=== PATIENT | male | born 2000 | race Hispanic/Latino ===

== ENCOUNTER 2021-04-05 22:22 | Inpatient (IN) | payer OTHER ==
[~2021-04-05] VITALS: Ht 177.8 cm; Wt 84.8 kg
[2021-04-05] MEDS ORDERED: HOME MED LIST COMPLETE! XX SCH (23:10)
[2021-04-05 23:30] LABS: AMPHETAMINES LEVEL URINE NEGATIVE (NEGATIVE); BARBITURATES URINE NEGATIVE (NEGATIVE); BENZODIAZEPINES URINE NEGATIVE (NEGATIVE); CANNABINOIDS URINE NEGATIVE (NEGATIVE); COCAINE METABOLITE URINE NEGATIVE (NEGATIVE); METHADONE URINE NEGATIVE (NEGATIVE); OPIATES URINE NEGATIVE (NEGATIVE); PHENCYCLIDINE URINE NEGATIVE (NEGATIVE)
[2021-04-06 00:28] LABS: HEMATOCRIT 46.7 % (42.0-52.0); HEMOGLOBIN 15.2 g/dl (13.5-17.5); MEAN CORPUSCULAR HEMOGLOBIN 28.2 pg (27.0-33.0); MEAN CORPUSCULAR HGB CONC 32.5 g/dl (32.0-36.5); MEAN CORPUSCULAR VOLUME 86.6 fl (80.0-96.0); PLATELET COUNT, AUTOMATED 253 10^3/uL (150-450); RED BLOOD COUNT 5.39 10^6/uL (4.30-6.10); WHITE BLOOD COUNT 13.1 10^3/uL (4.0-10.0)
[2021-04-06 00:47] LABS: ACETAMINOPHEN LEVEL < 2.0 UG/ML (10.0-30.0); ALBUMIN 3.9 GM/DL (3.2-5.2); ALT/SGPT 31 U/L (12-78); BILIRUBIN,DIRECT 0.2 MG/DL (0.0-0.2); BILIRUBIN,TOTAL 0.5 MG/DL (0.2-1.0); BLOOD UREA NITROGEN 13 MG/DL (7-18); CALCIUM LEVEL 8.6 MG/DL (8.5-10.1); CARBON DIOXIDE LEVEL 30 MEQ/L (21-32); CHLORIDE LEVEL 105 MEQ/L (98-107); CREATININE FOR GFR 0.79 MG/DL (0.70-1.30); ETHYL ALCOHOL (ETHANOL) < 0.003 % (0.000-0.010); GLOMERULAR FILTRATION RATE > 60.0 (>60); GLUCOSE, FASTING 102 MG/DL (70-100); POTASSIUM SERUM 3.8 MEQ/L (3.5-5.1); SALICYLATE LEVEL < 1.7 MG/DL (5.0-30.0); SODIUM LEVEL 140 MEQ/L (136-145); TOTAL PROTEIN 7.3 GM/DL (6.4-8.2)
[2021-04-06 09:18] LABS: RSV AMPLIFICATION NEGATIVE (NEGATIVE)
[2021-04-06] MEDS ORDERED: MOM 30ML SUSPENSION UDC PO PRN (10:40)
[2021-04-06] MEDS ORDERED: traZODone 50 MG TAB PO PRN (10:40)
[2021-04-06] MEDS ORDERED: ACETAMINOPHEN TAB 650MG DOSE (2X325MG) PO PRN (10:40)
[2021-04-06] MEDS ORDERED: MAALOX 30 ML SUSP *UDC PO PRN (10:40)
[2021-04-06 11:53] VITALS: BP 132/74
[2021-04-06 16:24] VITALS: BP 140/68
[2021-04-07 06:45] VITALS: BP 135/63
--- NOTE | 2021-04-07 09:03 | HPEPDOC ---
[facility] Medical History & Physical Date of Admission Apr 05, 2021 Date of Service: Apr 07, 2021 History and Physical CHIEF COMPLAINT: suicidal ideation HISTORY OF PRESENT ILLNESS: 20-year-old male presents to the emergency department for panic attacks and suicidal ideation. 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 He also notes his friend committed suicide and his grandmother is now in the hospital on dialysis. He feels that due the stress in his life he has been having suicidal ideation. He notes poor concentration, decreased energy levels, poor sleep and poor appetite. He denies chest pain, shortness of breath, abdominal pain, nausea, vomiting, diarrhea, headaches, changes in vision PAST MEDICAL HISTORY: Denies SOCIAL HISTORY: States he has 2-5 drinks on the weekends. FAMILY HISTORY: Father: Mother: ALLERGIES: Please see below. REVIEW OF SYSTEMS: Negative except as per HPI. HOME MEDICATIONS: Please see below. PHYSICAL EXAMINATION: VITAL SIGNS: See below General: NAD, sitting comfortably in chair HEENT: NC/AT, EOMI Lungs: CTA B/L Heart: +S1S2, RRR Abd: soft, NT, +BS Ext: no edema Neuro: no gross focal deficits Psych: AAOx3 LABORATORY DATA: See below. MICROBIOLOGY: Please see below. A/P: 20 year old male with no past medical history admitted to inpatient mental health unit for suicidal ideation. #SI - As per primary team Thank you for this consultation. Please reconsult as needed. Vital Signs Vital Signs Date Time Temp Pulse Resp B/P (MAP) Pulse Ox O2 Delivery O2 Flow Rate FiO2 04/07/21 06:45 97.8 60 14 135/63 (87) 98 Room Air Home Medications No Active Prescriptions or Reported Meds Allergies Coded Allergies: No Known Allergies (Unverified , 04/05/21) A-FIB/CHADSVASC A-FIB History Current/History of A-Fib/PAF?: No JAZMIN GALARZA MD Apr 07, 2021 09:03
--- NOTE | 2021-04-07 10:32 | MHHPEPDOC ---
General Date Of Admission: Apr 06, 2021 Legal Status: 9.39 Chief Complaint "[I was having some difficult time and had a mental breakdown but I am feeling better now.]. History of Present Illness HISTORY OF THE PRESENT ILLNESS: Patient is a 20 -year-old , male, who [has no previous psychiatric history who was sent to the emergency room from [facility] at [place]. Patient stated that he found out that his uncle from "with impaction in October of this year and then recently one of his close friend from suicide in January of this year. Patient stated that he was feeling the stress building up in his mind and recently had a trouble with feeling depressed having anxiety panic symptoms and was crying and did not feel like living anymore. He apparently went to the behavioral health unit saw a counselor but was given appointment for follow-up and reported that he was having vague suicidal thoughts and sent to emergency room and admitted. Patient stated that he had a emotional breakdown for the first time in his life but is feeling better now and does not feel suicidal anymore since he arrived at the emergency room evening. He denies any hallucination paranoia denies any feelings of hopeless helpless nature and denies any ongoing depression and denies any suicidal thoughts plan or intent. 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 Psychiatric Review of Systems Depression (2 or more weeks): depressed mood, difficulty concentrating, suicidal thoughts, other (Or in the past 2 weeks but not feeling depressed or anxious anymore) Lida (4 or more days of): denies Psychosis: denies PTSD: denies Anxiety: situational anxiety Past Psychiatric History Previous Psychiatric Diagnosis: . No diagnosis Previous Psychiatric Admissions: . No treatment history Suicide Attempts: . No history of suicidal attempt Psychiatric Follow-up: . Recent visits to [facility] Psychiatric medications: . None Past Medical History Medical Problems No medical issues Head Injury: No Seizures: No Hospitalizations: No Surgeries: No Family Medical/Psychiatric HX Medical Problems Noncontributory Psychiatric Disorders: No Addiction: No Suicide Attemps/Completions: No Addiction History denies Social History Childhood: . Born in [place] his parents were never he has very little contact with his father Abuse/Trauma:[No history of abuse]. Current Living Sit[place] Education: [High school]. 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 Social Support: . Family and friends Legal: no legal history. Marital: . Single Mental Status Examination General Appearance: appears stated age Build: average Demeanor: average Eye Contact: average Activity: average Behavior: cooperative Speech: clear, spontaneous, normal volume Mood: anxious, other (Moderately anxious) Mood Was distressed anxious and depressed before admission but reports feeling better. He denies any major ongoing depressive symptoms and denies any suicidal thoughts. Thought Process: logical/linear Thought Content (Delusions): none reported, denies SI, HI, AVH Thought Content (Other): none reported Thought Content (Aggressive): none reported Perception (Hallucinations): none reported Perception (Other): none reported Cognition (Impairment of): none reported Cognition(Intelligence Est.): average Oriented: Awake, Alert, Oriented times three Insight: fair Judgment: Fair Psychosis: Denies Diagnoses Adjustment disorder with mixed emotion A-FIB/CHADSVASC A-FIB History Current/History of A-Fib/PAF?: No Current PO Anticoag Therapy: No Age/Risk Factor Scoring CHADSVASC: CHADSVASC Response (Comments) Value Age Risk Factor Age < 65 years old 0 Gender Risk Factor Male 0 Hx of CHF No 0 Hx of HTN No 0 Hx of Stroke/TIA/or VTE No 0 Hx of Diabetes No 0 Hx of Vascular Disease No 0 Total 0 Treatment Treatment ordered: NONE Assessment Does not appear clinically depressed and no suicidal thoughts and mental status exam is basically unremarkable we will try to return him to his unit with outpatient follow-up Initial Treatment Plan 1. Patient was admitted on a status. 2. Complete history was obtained. 3. With patients permission, family will be contacted and database will be expanded. 4. Patients medication regimen will be reviewed and changed accordingly. 5. Patient will be provided with protected environment. 6. Patient will be treated with individual, group, and milieu therapies. 7. Patient will receive supportive psych-education. 8. Discharge planning will commence immediately. 9. Outpatient follow-up treatment will be strongly recommended. 10. The initial treatment plan will focus initially on: * Depression. * Risk for suicide. ESTIMATED LENGTH OF STAY: 2-3 DAYS. TIME SPENT COUNSELING AND COORDINATING INITIAL CARE: 40 minutes. Tobacco Cessation Screen If Patient is a Smoker Non-smoker N/A-No Antipsychotics Vital Signs Vital Signs Date Time Temp Pulse Resp B/P (MAP) Pulse Ox O2 Delivery O2 Flow Rate FiO2 04/07/21 06:45 97.8 60 14 135/63 (87) 98 Room Air Medications No Active Prescriptions or Reported Meds Allergies Coded Allergies: No Known Allergies (Unverified , 04/05/21) MARY KAY VALDES M.D. Apr 07, 2021 10:32
[2021-04-07 16:39] VITALS: BP 117/60
[2021-04-08 05:32] VITALS: BP 147/65
--- NOTE | 2021-04-08 09:43 | MHIPNPDOC ---
[facility] Progress Note Progress Note DATE OF SERVICE: 04/08/21 Patient is maintaining good control and reports that he slept well and has no new complaints. He is smiling appropriately does not appear to be seriously depressed and is verbally productive and appropriate. He understands that he had emotional reaction to recent losses but claims that he is over that and is denying any suicidal thoughts and anxious to return to his unit [facility]. HISTORY:. VITAL SIGNS: See below. NEW TEST RESULTS:. CURRENT MEDICATIONS: See below. MENTAL STATUS EXAMINATION: Patient is a 20-year old male, who is pleasant and cooperative. Speech: Is rational. Language skills are good. Thought processes including: Coherent. Thought content: No suicidal thoughts. Abstract reasoning, and computation: Fair. Description of associations: Organized. Description of abnormal or psychotic thoughts: No psychotic symptoms. Judgment: Fair. Insight: Fair]. Orientation: Oriented. Recent and remote memory: Unimpaired. Attention span and concentration: Fair. Language:. Fund of knowledge:. Mood: Mildly anxious but not depressed. Affect: Appropriate. DIAGNOSES: 1. Adjustment disorder with mixed emotion. 2.. 3.. ASSESSMENT: In no acute distress and does not appear to be clinically depressed MANAGEMENT PLAN: Continue with the supportive therapy plan for discharge tomorrow. TIME SPENT: 15 minutes. Vital Signs Vital Signs Date Time Temp Pulse Resp B/P (MAP) Pulse Ox O2 Delivery O2 Flow Rate FiO2 04/08/21 05:32 97.9 71 18 147/65 (92) 100 Room Air Current Medications Current Medications Medications (Trade) Dose Ordered Sig/Isacc Route PRN Reason Start Time Stop Time Status Last Admin Dose Admin Acetaminophen (Tylenol Tab) 650 mg Q6HP PRN PO HEADACHE or MILD DISCOMFORT 04/06/21 10:40 Al Hydrox/Mg Hydrox/Simethicone (Mylanta) 30 ml Q4HP PRN PO HEARTBURN/INDIGESTION 04/06/21 10:40 Home Med (Home Med List Complete!) ASDIRECTED XX 04/05/21 23:10 04/05/21 23:12 DC Magnesium Hydroxide (Milk Of Magnesia) 30 ml DAILYPRN PRN PO CONSTIPATION 04/06/21 10:40 Trazodone HCl (Desyrel) 50 mg QHSP PRN PO INSOMNIA 04/06/21 10:40 Allergies Coded Allergies: No Known Allergies (Unverified , 04/05/21) MARY KAY VALDES M.D. Apr 08, 2021 09:43
[2021-04-08 16:27] VITALS: BP 122/57
[2021-04-09 07:36] VITALS: BP 136/61
--- NOTE | 2021-04-09 11:15 | MHDSPDOC ---
[facility] Discharge Summary Discharge Summary DATE OF ADMISSION: Apr 06, 2021 at 10:37 DATE OF DISCHARGE: April 09, 2021 DISCHARGE DIAGNOSES: 1.. Adjustment disorder with mixed emotion 2.. 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 at [place] after he reported having thoughts of suicide. Patient stated that he was under stress because of recent of his uncle and a close friend and had what he called mental breakdown. He stated that he was feeling quite upset depressed and had the passing thoughts of suicide but denies any intent plan or thoughts of suicide and had no history of suicidal attempt. He denies any ongoing depression denies any history of depression denies any substance abuse issues. CONSULTANTS INVOLVED: TREATMENT AND PROGRESS ON THE UNIT : The patient was seen for supportive therapy and lethality evaluation. He denies any ongoing serious depression and rapidly regained to his strength and stated that he does not feel so upset or depressed anymore and does not believe he needs any antidepressant treatment. He is maintaining good control and is pleasant and animated and is not showing any clinical signs or symptoms of depression and does not appear to be suicidal.. HOSPITAL COURSE: Uneventful and he maintained good control and continues to deny any suicidal thoughts DISCHARGE ASSESSMENT: Stable not suicidal and does not appear to be serious. Clinically depressed MENTAL STATUS EXAMINATION ON DISCHARGE: Patient is a 20-year old male, who is in no acute distress. Speech is rational. Language skills are fair. Thought processes including: Coherent. Thought content: No suicidal thoughts. Abstract reasoning, and computation: Good. Description of associations: Well organized. Description of abnormal or psychotic thoughts: No psychotic symptoms. Judgment: Fair. Insight: Fair. Orientation to well oriented. Recent and remote memory: No impairment. Attention span and concentration: Good. Language:. Fund of knowledge:. Mood: Mildly anxious. Affect: Appropriate with good range. MEDICATIONS ON DISCHARGE: -For. No psychotropic medications -For. -For. PLAN/FOLLOWUP ARRANGEMENTS: To follow-up with the behavioral health unit. The amount of time spent in the coordination of care for this patient was approximately 30 minutes. ETOH/Disorder Med Rx ETOH/DRUG DISORDER RX: N/A Vital Signs/I&Os Vital Signs Date Time Temp Pulse Resp B/P (MAP) Pulse Ox O2 Delivery O2 Flow Rate FiO2 04/09/21 07:36 97.6 65 16 136/61 (86) 100 Room Air Medications No Active Prescriptions or Reported Meds Allergies Coded Allergies: No Known Allergies (Unverified , 04/05/21) MARY KAY VALDES M.D. Apr 09, 2021 11:15
== END 2021-04-09 11:11 | disposition home or self-care (01) | DRG 882 ==
LOC: M ED 22:22 → M ED INP 04-06 10:37 → M PSY 04-06 11:50
PROVIDERS: ADMIT Psychiatry & Neurology Psychiatry; ATTEND Psychiatry & Neurology Psychiatry
DX: F43.23 Adjustment disorder with mixed anxiety and depressed mood (principal)

== ENCOUNTER 2021-08-06 23:54 | Emergency (ER) | payer OTHER ==
[~2021-08-06] VITALS: Ht 177.8 cm; Wt 86.4 kg
--- OUTSIDE RECORDS SUMMARY | 2021-08-07 | CCD ---
Author Author [facility] Address Unknown Phone Unavailable Support Name Relationship Address Phone [facility] Next Of Kin [address] [place] [address] Unavailable Re-disclosure Warning The records that you are about to access may contain information from federally-assisted alcohol or drug abuse programs. If such information is present, then the following federally mandated warning applies: This information has been disclosed to you from records protected by federal confidentiality rules (42 CFR part 2). The federal rules prohibit you from making any further disclosure of this information unless further disclosure is expressly permitted by the written consent of the person to whom it pertains or as otherwise permitted by 42 CFR part 2. A general authorization for the release of medical or other information is NOT sufficient for this purpose. The Federal rules restrict any use of the information to criminally investigate or prosecute any alcohol or drug abuse patient.The records that you are about to access may contain highly sensitive health information, the redisclosure of which is protected by Article 27-F of the [facility] Public Health law. If you continue you may have access to information: Regarding HIV / AIDS; Provided by facilities licensed or operated by the [facility] Office of Mental Health; or Provided by the [facility] Office for People With Developmental Disabilities. If such information is present, then the following [facility] mandated warning applies: This information has been disclosed to you from confidential records which are protected by state law. State law prohibits you from making any further disclosure of this information without the specific written consent of the person to whom it pertains, or as otherwise permitted by law. Any unauthorized further disclosure in violation of state law may result in a fine or nursing home sentence or both. A general authorization for the release of medical or other information is NOT sufficient authorization for further disc losure. Medications No Information Insurance Providers Payer name Policy type / Coverage type Policy ID Covered green party ID Covered green party's relationship to dawkins Policy Dawkins Plan [facility] ACTIVE DUTY [id number] Problems, Conditions, and Diagnoses No Information Surgeries/Procedures No Information Results ID Date Data Source [id number] 05/09/2021 08:32:00 AM EDT [facility] Name Value Range Interpretation Code Description Data Mary rce(s) Supporting Document(s) SARS coronavirus 2 RNA Not Detected [facility] [place] This lab was ordered by [facility] and reported by [facility]. ID Date Data Source [id number] 04/06/2021 08:20:00 AM EDT [facility] Name Value Range Interpretation Code Description Data Mary rce(s) Supporting Document(s) SARS coronavirus 2 RNA [Presence] in Res piratory specimen by BOB with probe detection NEGATIVE [facility] This lab was ordered by [facility] a nd reported by [facility]. Procedure Social History No Information
[2021-08-07 01:04] LABS: RSV AMPLIFICATION NEGATIVE (NEGATIVE)
[2021-08-07] MEDS ORDERED: ONDANSETRON 4MG/2ML VIAL IV ONE (06:55)
[2021-08-07] MEDS ORDERED: NS 1,000 ML IV ONE (06:55)
--- OUTSIDE RECORDS SUMMARY | 2021-08-07 07:03 | CCD ---
Author Author [facility] Organization [facility] Address Unknown Phone Unavailable Support Name Relationship Address Phone [facility] Next Of Kin [address] [place] [address] Unavailable Re-disclosure Warning The records that you [...] is protected by Article 27-F of the [facility] Public Health law. If you continue you may have access to information: Regarding HIV / AIDS; Provided by facilities licensed or operated by the [facility] Office of Mental Health; or Provided by the [facility] Office for People With Developmental Disabilities. If such information is present, then the following [facility] mandated warning applies: This information has [...] law may result in a fine or skilled nursing sentence or both. A general authorization for the release of medical or other information is NOT sufficient authorization for further disc losure. Medications No Information Insurance Providers Payer name Policy type / Coverage type Policy ID Covered republican ID Covered republican's relationship to dawkins Policy Dawkins Plan Information [facility] ACTIVE DUTY [id number] Problems, Conditions, and Diagnoses No Information Surgeries/Procedures No Information Results ID Date Data Source [id number] 05/09/2021 08:32:00 AM EDT [facility] Name Value Range Interpretation Code Description Data Mary rce(s) Supporting Document(s) SARS coronavirus 2 RNA Not Detected [facility] [place] This lab was ordered by [facility] and reported by [facility]. ID Date Data Source [id number] 04/06/2021 08:20:00 AM EDT [facility] Name Value Range Interpretation Code Description Data Mary rce(s) Supporting Document(s) SARS coronavirus 2 RNA [Presence] in Res piratory specimen by [facility]OB with probe [facility] This lab was ordered by [facility] a nd reported by [facility]. Procedure Social History No Information
[2021-08-07 07:25] LABS: BASO # 0.1 10^3/uL (0.0-0.2); BASO % 0.5 % (0.0-1.0); EOS # 0.2 10^3/uL (0.0-0.5); EOS % 2.5 % (0.0-3.0); HEMATOCRIT 46.6 % (42.0-52.0); HEMOGLOBIN 15.4 g/dl (13.5-17.5); LYMPH # 3.3 10^3/uL (1.5-5.0); LYMPH % 35.2 % (24.0-44.0); MEAN CORPUSCULAR HEMOGLOBIN 28.4 pg (27.0-33.0); MEAN CORPUSCULAR VOLUME 85.8 fl (80.0-96.0); MONO # 0.8 10^3/uL (0.0-0.8); MONO % 8.9 % (2.0-8.0); NEUTROPHILS # 4.9 10^3/uL (1.5-8.5); NEUTROPHILS % 52.7 % (36.0-66.0); PLATELET COUNT, AUTOMATED 267 10^3/uL (150-450); RED BLOOD COUNT 5.43 10^6/uL (4.30-6.10); WHITE BLOOD COUNT 9.3 10^3/uL (4.0-10.0)
[2021-08-07] MEDS ORDERED: ISOVUE-370 76% 100ML VIAL As Ordered ONE (07:46)
[2021-08-07 07:55] LABS: ALBUMIN 4.1 GM/DL (3.2-5.2); BILIRUBIN,DIRECT 0.2 MG/DL (0.0-0.2); BILIRUBIN,TOTAL 0.5 MG/DL (0.2-1.0); TOTAL PROTEIN 7.6 GM/DL (6.4-8.2)
--- NOTE | 2021-08-07 08:41 | REPVR ---
PROCEDURE INFORMATION: Exam: CT Abdomen And Pelvis With Contrast Exam date and time: 08/07/2021 8:04 AM Age: 20 years old Clinical indication: Abdominal pain; Generalized TECHNIQUE: Imaging protocol: Computed tomography of the abdomen and pelvis with contrast. Radiation optimization: All CT scans at this facility use at least one of these dose optimization techniques: automated exposure control; mA and/or kV adjustment per patient size (includes targeted exams where dose is matched to clinical indication); or iterative reconstruction. Contrast material: ISOVUE 370; Contrast volume: 100 ml; Contrast route: INTRAVENOUS (IV); COMPARISON: No relevant prior studies available. FINDINGS: Liver: Mild hepatomegaly. Gallbladder and bile ducts: Normal. No calcified stones. No ductal dilation. Pancreas: Normal. No ductal dilation. Spleen: Normal. No splenomegaly. Adrenal glands: Normal. No mass. Kidneys and ureters: Normal. No hydronephrosis. Stomach and bowel: Unremarkable. No obstruction. No mucosal thickening. Appendix: No evidence of appendicitis. Intraperitoneal space: Unremarkable. No free air. No significant fluid collection. Vasculature: Unremarkable. No abdominal aortic aneurysm. Lymph nodes: Scattered subcentimeter nonspecific mesenteric nodes. Urinary bladder: Unremarkable as visualized. Reproductive: Unremarkable as visualized. Bones/joints: Unremarkable. No acute fracture. Soft tissues: Unremarkable. IMPRESSION: Mild hepatomegaly. No bowel obstruction. Normal appendix. No hydronephrosis or nephrolithiasis bilaterally. Electronically signed by: Dawson Cm On 08/07/2021 08:41:11 AM
[2021-08-07] MEDS ORDERED: ACETAMINOPHEN 325 MG TAB PO ONE (08:55)
[2021-08-07 09:03] VITALS: BP 125/62
== END 2021-08-07 09:07 | disposition home or self-care (01) ==
LOC: M ED 23:54
DX: B34.9 Viral infection, unspecified (principal); R10.9 Unspecified abdominal pain
CPT/HCPCS: 36415; 74177; 80047; 80076; 83690; 85025; 87631; 96361; 96374; 99284; J2405; Q9967

== ENCOUNTER 2021-10-03 19:08 | Emergency (ER) | payer OTHER ==
[~2021-10-03] VITALS: Ht 177.8 cm; Wt 88.6 kg
[~2021-10-03 19:08] MED LIST: LEXA1TAB PO
[2021-10-03 19:09] VITALS: BP 169/94
== END 2021-10-03 21:00 | disposition home or self-care (01) ==
LOC: M ED 19:08
DX: F32.9 Major depressive disorder, single episode, unspecified (principal); Z79.899 Other long term (current) drug therapy